=== PATIENT | female | born 1985 | race Caucasian/White ===

== ENCOUNTER → 2017-05-09 | Outpatient (CLI) | payer MEDICAID ==
[~2017-05-09] MED LIST: PERC10TA27 PO; ZOFR4TAB3 SL
== END ==
LOC: HPND 08:01
PROVIDERS: ATTEND Obstetrics & Gynecology
DX: O35.8XX0 Maternal care for other (suspected) fetal abnormality and damage, not applicable or unspecified (principal)
CPT/HCPCS: 76811